=== PATIENT | female | born 1955 | race Caucasian/White ===

== ENCOUNTER 2021-01-10 12:28 | Emergency (ER) | payer MEDICAID, OTHER ==
[~2021-01-10] VITALS: Ht 162.6 cm; Wt 79.4 kg
--- NOTE | 2021-01-10 13:36 | NUR ---
PT WAS EVALUATED BY DR MEJIA. PT WAS D/C'd TO HOME. D/C INSTRUCTIONS GIVEN TO THE PT AND TO HER DOUGHTER BY DR MEJIA.
[2021-01-10 13:40] VITALS: BP 142/81
== END 2021-01-10 13:41 | disposition home or self-care (01) ==
LOC: ER 12:28
DX: Z48.02 Encounter for removal of sutures (principal); G35 Multiple sclerosis; Z95.5 Presence of coronary angioplasty implant and graft; E11.9 Type 2 diabetes mellitus without complications; I10 Essential (primary) hypertension
CPT/HCPCS: A4663